=== PATIENT | male | born 1975 | race Caucasian/White ===

== ENCOUNTER 2016-08-20 14:24 | Emergency (ER) | payer MEDICAID ==
[2016-08-20 16:33] VITALS: BP 130/86
== END 2016-08-20 16:33 | disposition home or self-care (01) ==
LOC: ED 14:24
DX: S80.12XA Contusion of left lower leg, initial encounter (principal); W18.30XA Fall on same level, unspecified, initial encounter; Y93.89 Activity, other specified; Y99.8 Other external cause status; Y92.008 Other place in unspecified non-institutional (private) residence as the place of occurrence of the external cause

== ENCOUNTER 2019-06-06 17:48 | Emergency (ER) | payer MEDICAID ==
[~2019-06-06] VITALS: Ht 172.7 cm; Wt 101.2 kg
[2019-06-06 17:59] VITALS: Ht 172.7 cm; Wt 101.2 kg
[2019-06-06 20:40] VITALS: BP 134/82
== END 2019-06-06 20:40 | disposition home or self-care (01) ==
LOC: ED 17:48
DX: Z48.01 Encounter for change or removal of surgical wound dressing (principal); Z89.012 Acquired absence of left thumb; E78.00 Pure hypercholesterolemia, unspecified